=== PATIENT | female | born 1965 | race African-American/Black ===

== ENCOUNTER 2017-01-10 17:35 | Inpatient (IN) | payer OTHER ==
[2017-01-10 18:57] VITALS: BMI 27.7
--- NOTE | 2017-01-10 20:53 | HP ---
COWS - Scale Resting Pulse: 2= AR 101-120 Sweatin= Chills/Flushing Restless Observation: 1= Difficult to Sit Still Pupil Size: 0= Normal to Room Light Bone or Joint Aches: 2= Severe Diffuse Aches Runny Nose/ Eye Tearin= Runny Nose/Eyes GI Upset > 30mins: 3= Vomiting/Diarrhea Tremor Observation: 2= Slight Tremor Visible Yawning Observation: 0= None Anxiety or Irritability: 2=Irritable/Anxious Goose Flesh Skin: 0=Smooth Skin COWS Score: 15 Admission ROS [facility] - [facility] Chief Complaint: withdrawal sx Allergies/Adverse Reactions: Allergies Allergy/AdvReac Type Severity Reaction Status Date / Time Penicillins Allergy Severe Swelling Verified 01/10/17 20:45 History of Present Illness: 51 years old female with long history o f opioid nicotine dependence, has asthma and hypertension denies mental illness,is admitted to detox patient has opioid withdrawal sx call ambulance from home treated at [facility] discharged to [facility] for opioid detox Exam Limitations: No Limitations - Ebola screening Have you traveled outside of the country in the last 21 days: No Have you had contact with anyone from an Ebola affected area: No Have you been sick,other than usual withdrawal symptoms: No Do you have a fever: No - Review of Systems Constitutional: Chills, Changes in sleep, Weight Stable EENT: reports: Other (eye glasses) Respiratory: reports: SOB with Exertion Cardiac: reports: No Symptoms Reported GI: reports: Diarrhea, Nausea, Poor Fluid Intake, Abdominal cramping : reports: No Symptoms Reported Musculoskeletal: reports: Back Pain, Joint Pain, Muscle Pain, Neck Pain Integumentary: reports: No Symptoms Reported Neuro: reports: Tremors Endocrine: reports: No Symptoms Reported Hematology: reports: No Symptoms Reported Psychiatric: reports: Judgement Intact, Mood/Affect Appropiate, Orientated x3 Other Systems: Reviewed and Negative Patient History - Patient Medical History Hx Anemia: No Hx Asthma: Yes Hx Chronic Obstructive Pulmonary Disease (COPD): No Hx Cancer: No Hx Cardiac Disorders: No Hx Congestive Heart Failure: No Hx Hypertension: Yes Hx Hypercholesterolemia: No Hx Pacemaker: No HX Cerebrovascular Accident: No Hx Seizures: No Hx Dementia: No Hx Diabetes: No Hx Gastrointestinal Disorders: Yes Hx Liver Disease: No Hx Genitourinary Disorders: No Hx Sexually Transmitted Disorders: No Hx Renal Disease (ESRD): No Hx Thyroid Disease: No Hx Human Immunodeficiency Virus (HIV): No Hx Hepatitis C: No Hx Depression: No Hx Suicide Attempt: No Hx Bipolar Disorder: No Hx Schizophrenia: No - Patient Surgical History Past Surgical History: Yes Hx Section: Yes (x3) Anesthesia Reaction: No - PPD History Previous Implant?: Yes Documented Results: Negative w/o proof Implanted On Prior R Admission?: No PPD to be Administered?: Yes - Reproductive History Patient is a Female of Child Bearing Age (11 -55 yrs old): Yes Last Menstrual Period: 02/08/10 Patient : No - Smoking Cessation Smoking history: Current every day smoker Have you smoked in the past 12 months: Yes Aproximately how many cigarettes per day: 10 Cigars Per Day: 0 Hx Chewing Tobacco Use: No Initiated information on smoking cessation: Yes 'Breaking Loose' booklet given: 01/10/17 - Substance & Tx. History Hx Alcohol Use: No Hx Substance Use: Yes Substance Use Type: Cocaine, Heroin, Opiates Hx Substance Use Treatment: Yes - Substances Abused Heroin Route: Inhalation Frequency: Daily Amount used: 10 bags Age of first use: 18 Date of Last Use: 01/09/17 Family Disease History - Family Disease History Family Disease History: Heart Disease: Grandparent, Other: Father (), Mother ( hiv) Admission Physical Exam S - Vital Signs Vital Signs: Vital Signs - 24 hr 01/10/17 01/10/17 18:53 20:21 Temperature 97.7 F 97.7 F Pulse Rate 107 H 107 H Respiratory 20 20 Rate Blood Pressure 102/80 102/80 - Physical General Appearance: Yes: Nourished, Appropriately Dressed, Mild Distress ( withdrawal sx treated at [facility]), Tremorous, Irritable, Sweating, Anxious HEENTM: Yes: Hearing grossly Normal, Normal ENT Inspection, Normocephalic, Normal Voice Respiratory: Yes: Chest Non-Tender, Lungs Clear, Normal Breath Sounds, No Respiratory Distress, No Accessory Muscle Use Neck: Yes: Supple, Trachea in good position Breast: Yes: Breasts Symetrical Cardiology: Yes: Regular Rhythm, S1, S2, Tachycardia Abdominal: Yes: Non Tender, Soft Genitourinary: Yes: Within Normal Limits Back: Yes: Normal Inspection Musculoskeletal: Yes: full range of Motion, Gait Steady, Back pain, Muscle Pain Extremities: Yes: Normal Range of Motion, Non-Tender, Tremors Neurological: Yes: Fully Oriented, Alert, Motor Strength 5/5, Normal Mood/Affect , Normal Response Integumentary: Yes: Warm Lymphatic: Yes: Within Normal Limits - Diagnostic (1) Opioid dependence with withdrawal Current Visit: Yes Status: Acute (2) Nicotine dependence Current Visit: Yes Status: Acute Qualifiers: Nicotine product type: cigarettes Substance use status: in withdrawal Qualified Code(s): F17.213 - Nicotine dependence, cigarettes, with withdrawal (3) Asthma Current Visit: Yes Status: Chronic Qualifiers: Asthma severity: mild persistent Asthma complication type: with status asthmaticus Qualified Code(s): J45.32 - Mild persistent asthma with status asthmaticus (4) Hypertension Current Visit: Yes Status: Chronic Qualifiers: Hypertension type: essential hypertension Qualified Code(s): I10 - Essential (primary) hypertension Comment: low bp upon admission hold norvasc 5 mg (5) GERD (gastroesophageal reflux disease) Current Visit: Yes Status: Chronic Qualifiers: Esophagitis presence: without esophagitis Qualified Code(s): K21.9 - Gastro-esophageal reflux disease without esophagitis Cleared for Admission [facility] - Detox or Rehab [facility] Level of Care: Medically Managed Detox Regimen/Protocol: Methadone [facility] Breath Alcohol Content Breath Alcohol Content: 0 Urine Pregancy Test - Result Urine Test Results: Negative- NO Line Present Urine Drug Screen - Results Drug Screen Negative: No Urine Drug Screen Results: DELIA-Cocaine, MET-Methamphetamine, BZO-Benzodiazepines , TCA-Tricyclic Antidepress
[2017-01-10] MEDS ORDERED: METHADONE HCL 10 MG TABLET (FOR DETOX USE ONLY) PO ONE ×2 (20:59→23:00)
[2017-01-10] MEDS ORDERED: NICOTINE POLACRILEX 2 MG GUM BC PRN (20:59)
[2017-01-10] MEDS ORDERED: MAGNESIUM CITRATE 300 ML BOTTLE PO PRN (20:59)
[2017-01-10] MEDS ORDERED: LOPERAMIDE HCL 2 MG CAPSULE PO PRN (20:59)
[2017-01-10] MEDS ORDERED: guaiFENesin/D-METHORPHAN HB 10 ML UNIT-DOSE CUPS PO PRN (20:59)
[2017-01-10] MEDS ORDERED: MAG HYDROX/AL HYDROX/SIMETH 30 ML UNIT-DOSE CUP PO PRN (20:59)
[2017-01-10] MEDS ORDERED: MENTHOL/PHENOL 1 EACH UD MM PRN (20:59)
[2017-01-10] MEDS ORDERED: MAGNESIUM HYDROX 2400MG/30ML ORAL SUSPENSION 30 ML CUP PO PRN (20:59)
[2017-01-10] MEDS ORDERED: P-EPHED 60MG/TRIPROLIDI 2.5MG TABLET PO PRN (20:59)
[2017-01-10] MEDS ORDERED: ALBUTEROL SO4 2.5/IPRATROPIUM 0.5 INH SOL 3 ML VIAL.NEB. NEB PRN (21:04)
[2017-01-10] MEDS: RANITIDINE HCL 150 MG TABLET (FP) PO SCH (22:07)
[2017-01-10] MEDS: THIAMINE HCL 100 MG TABLET (FP) PO SCH (22:08)
[2017-01-11] MEDS: diazePAM 5 MG TABLET PO PRN ×5 (00:49→22:13)
[2017-01-11] MEDS: ALBUTEROL SO4 6.7 GM HFA INHALER IH PRN ×2 (00:51→17:41)
[2017-01-11] MEDS ORDERED: METHADONE HCL 10 MG TABLET (FOR DETOX USE ONLY) PO ONE (10:00)
[2017-01-11] MEDS: RANITIDINE HCL 150 MG TABLET (FP) PO SCH ×2 (10:29→22:09)
[2017-01-11] MEDS: PRENATAL VITAMINS W/ FOLIC ACID TABLET (FP) PO SCH (10:29)
[2017-01-11] MEDS: NICOTINE 14 MG/24 HOURS TOPICAL PATCH TD SCH (10:30)
--- NOTE | 2017-01-11 12:02 | PN ---
[facility] Progress Note Note: according to urine toxicology last night pt was not positive for opiates. pt was made aware of result. today pt was asked to give urine for another tox screen; today result show opiates. pt states she has been doing heroin all this and last week. urine toxicology indicate positive for opiates. pt will be placed on methadone regimen detox as previously ordered.
--- NOTE | 2017-01-11 13:23 | EKG ---
Test Reason : Blood Pressure : / mmHG Vent. Rate : 086 BPM Atrial Rate : 086 BPM P-R Int : 158 ms QRS Dur : 088 ms QT Int : 390 ms P-R-T Axes : 078 072 069 degrees QTc Int : 466 ms NORMAL SINUS RHYTHM POSSIBLE LEFT ATRIAL ENLARGEMENT BORDERLINE ECG NO PREVIOUS ECGS AVAILABLE Confirmed by MICHAEL KELLEY, MARCIO ([id number]) on 01/11/2017 1:22:59 PM Referred By: John Lutz Confirmed By:MARCIO RODRIGUEZ MD
[2017-01-11] MEDS: THIAMINE HCL 100 MG TABLET (FP) PO SCH (22:09)
[2017-01-11] MEDS: diphenhydrAMINE HCL 50 MG CAPSULE PO PRN (22:13)
[2017-01-12] MEDS: diazePAM 5 MG TABLET PO PRN ×5 (04:00→23:02)
[2017-01-12] MEDS: ACETAMINOPHEN 325 MG TABLET (FP) PO PRN ×2 (04:01→15:36)
--- NOTE | 2017-01-12 09:00 | CONSULT ---
[facility] Psychiatric Consult - Data Date of interview: 01/12/17 Admission source: [facility] Identifying data: This is 51 myears old female with no psychiatric hospitalization history intoxicated with: Heroin and Nicotine Substance Abuse History: - Smoking Cessation. Smoking history: Current every day smoker. Have you smoked in the past 12 months: Yes. Aproximately how many cigarettes per day: 10. Cigars Per Day: 0. Hx Chewing Tobacco Use: No. Initiated information on smoking cessation: Yes. 'Breaking Loose' booklet given : 01/10/17. - Substance & Tx. History. Hx Alcohol Use: No. Hx Substance Use: Yes. Substance Use Type: Cocaine, Heroin, Opiates. Hx Substance Use Treatment : Yes. - Substances Abused. Heroin. Route: Inhalation. Frequency: Daily. Amount used: 10 bags. Age of first use: 18. Date of Last Use: 01/09/17 Medical History: Asthma, GERD, HTN Psychiatric History: Patient reprots history of depression and anxiety, preoccupied with insomnia, reports taking prior to admission: Trazodone 50mg po qhs Physical/Sexual Abuse/Trauma History: Denies Additional Comment: Trazodone 50mg po qhs Mental Status Exam - Mental Status Exam Alert and Oriented to: Person Cognitive Function: Fair Patient Appearance: Unkempt Mood: Apprehensive Affect: Mood Congruent Patient Behavior: Cooperative Speech Pattern: Appropriate Voice Loudness: Mildly Soft/Quiet Thought Process: Goal Oriented Thought Disorder: Being Controlled Hallucinations: Denies Suicidal Ideation: Denies Homicidal Ideation: Denies Insight/Judgement: Fair Sleep: Difficulty falling asleep Appetite: Weight loss Muscle strength/Tone: Normal Gait/Station: Shuffling Additional Comments: Trazodone 50mg po qhs Psychiatric Findings - Problem List ([place] 1, 2,3) (1) Nicotine dependence Current Visit: Yes Status: Acute Qualifiers: Nicotine product type: cigarettes Substance use status: in withdrawal Qualified Code(s): F17.213 - Nicotine dependence, cigarettes, with withdrawal (2) Opioid dependence with withdrawal Current Visit: Yes Status: Acute (3) Drug-induced mood disorder Current Visit: Yes Status: Acute (4) Opioid-induced sleep disorder, insomnia type, with onset during discontinuation/withdrawal Current Visit: Yes Status: Acute - Initial Treatment Plan Initial Treatment Plan: Trazodone 50mg po qhs. Doxepin 50mg po qhs
[2017-01-12] MEDS ORDERED: METHADONE HCL 5 MG TABLET (FOR DETOX USE ONLY) PO ONE ×2 (10:00)
[2017-01-12] MEDS ORDERED: METHADONE HCL 10 MG TABLET (FOR DETOX USE ONLY) PO ONE (10:00)
[2017-01-12 10:13] LABS: MCH 22.8 pg (25.7-33.7); MCHC 32.4 g/dl (32.0-36.0); MEAN CELL VOLUME 70.3 fl (80-96); MEAN PLT VOLUME 8.4 fl (7.5-11.1); PLATELET COUNT 392 K/MM3 (134-434); RDW 16.6 % (11.6-15.6); WHITE BLOOD COUNT 5.9 K/mm3 (4.0-10.0)
[2017-01-12] MEDS: LISINOPRIL 10 MG TABLET (FP) PO SCH (10:26)
[2017-01-12] MEDS: PRENATAL VITAMINS W/ FOLIC ACID TABLET (FP) PO SCH (10:26)
[2017-01-12] MEDS: RANITIDINE HCL 150 MG TABLET (FP) PO SCH ×2 (10:26→22:04)
[2017-01-12] MEDS: NICOTINE 14 MG/24 HOURS TOPICAL PATCH TD SCH (10:26)
[2017-01-12 10:57] LABS: ALBUMIN 3.3 g/dl (3.4-5.0); BILIRUBIN,TOTAL 0.3 mg/dL (0.2-1.0); CALCIUM 8.9 mg/dL (8.5-10.1); COCKROFT - GAULT 68.425; TOT PROT 5.9 g/dl (6.4-8.2)
--- NOTE | 2017-01-12 11:33 | PN ---
[facility] COWS - Scale Resting Pulse: 0= AR 80 or Below Sweatin= Chills/Flushing Restless Observation: 1= Difficult to Sit Still Pupil Size: 1= Pupils >than Normal Bone or Joint Aches: 2= Severe Diffuse Aches Runny Nose/ Eye Tearin= None GI Upset > 30mins: 2= Nausea/Diarrhea Tremor Observation of Outstretched Hands: 1= Tremor [place], Not Seen Yawning Observation: 0= None Anxiety or Irritability: 2=Irritable/Anxious Goose Flesh Skin: 0=Smooth Skin COWS Score: 10 [facility] Progress Note (SOAP) Subjective: interrrupted sleep, sweats , diarrhea , stomach upset from vomiting yesterday Objective: 01/12/17 11:30 Vital Signs Temperature 98.2 F 01/12/17 09:39 Pulse Rate 81 01/12/17 09:39 Respiratory Rate 16 01/12/17 09:39 Blood Pressure 129/80 01/12/17 09:39 O2 Sat by Pulse Oximetry (%) Laboratory Tests 01/12/17 01/12/17 07:00 07:00 WBC 5.9 RBC 5.23 H Hgb 11.9 Hct 36.8 MCV 70.3 L MCHC 32.4 RDW 16.6 H Plt Count 392 MPV 8.4 Sodium 143 Potassium 4.8 Chloride 106 Carbon Dioxide 28 Anion Gap 9 BUN 13 Creatinine 1.0 Creat Clearance w eGFR 58.69 Random Glucose 81 Calcium 8.9 Total Bilirubin 0.3 AST 15 ALT 18 Alkaline Phosphatase 73 Total Protein 5.9 L Albumin 3.3 L pt aox3 in nad ambulating 01/12/17 11:32 abd mild epigatric tendernesss no masses or rebound Assessment: 01/12/17 11:31 withdrawal sx's dyspepsia 01/12/17 11:32 Plan: cont. detox increase fluids imodium prn zantac bid
[2017-01-12] MEDS: TRIMETHOBENZAMIDE HCL 300 MG CAPSULE PO PRN (13:59)
[2017-01-12] MEDS: THIAMINE HCL 100 MG TABLET (FP) PO SCH (22:04)
[2017-01-12] MEDS: traZODone HCL 50 MG TABLET (FP) PO SCH (22:04)
[2017-01-12] MEDS: DOXEPIN HCL 50 MG CAPSULE PO SCH (22:04)
[2017-01-12] MEDS: diphenhydrAMINE HCL 50 MG CAPSULE PO PRN (22:05)
[2017-01-12] MEDS: ALBUTEROL SO4 6.7 GM HFA INHALER IH PRN (23:02)
[2017-01-13] MEDS ORDERED: METHADONE HCL 5 MG TABLET (FOR DETOX USE ONLY) PO ONE ×2 (10:00)
[2017-01-13] MEDS: PRENATAL VITAMINS W/ FOLIC ACID TABLET (FP) PO SCH (10:35)
[2017-01-13] MEDS: RANITIDINE HCL 150 MG TABLET (FP) PO SCH ×2 (10:35→22:05)
[2017-01-13] MEDS: LISINOPRIL 10 MG TABLET (FP) PO SCH (10:35)
[2017-01-13] MEDS: diazePAM 5 MG TABLET PO PRN ×3 (10:35→20:25)
[2017-01-13] MEDS: NICOTINE 14 MG/24 HOURS TOPICAL PATCH TD SCH (10:37)
[2017-01-13] MEDS: BUDESONIDE/FORMETEROL FUMARATE 80/4.5 mcg INHALER IH SCH ×2 (11:00→22:06)
--- NOTE | 2017-01-13 11:15 | PN ---
[facility] COWS - Scale Resting Pulse: 1= [place] 81-100 Sweatin= Chills/Flushing Restless Observation: 1= Difficult to Sit Still Pupil Size: 0= Normal to Room Light Bone or Joint Aches: 1= Mild Discomfort Runny Nose/ Eye Tearin= Nasal Congestion GI Upset > 30mins: 0= None Tremor Observation of Outstretched Hands: 2= Slight Tremor Visible Yawning Observation: 0= None Anxiety or Irritability: 2=Irritable/Anxious Goose Flesh Skin: 0=Smooth Skin COWS Score: 9 [facility] Progress Note (SOAP) Subjective: sweats chills interrupted sleep body aches Objective: 01/13/17 11:13 Vital Signs Temperature 95.9 F L 01/13/17 10:49 Pulse Rate 90 01/13/17 10:49 Respiratory Rate 16 01/13/17 10:49 Blood Pressure 118/72 01/13/17 10:49 O2 Sat by Pulse Oximetry (%) Laboratory Tests 01/12/17 01/12/17 01/12/17 07:00 07:00 07:00 WBC 5.9 RBC 5.23 H Hgb 11.9 Hct 36.8 MCV 70.3 L MCHC 32.4 RDW 16.6 H Plt Count 392 MPV 8.4 Sodium 143 Potassium 4.8 Chloride 106 Carbon Dioxide 28 Anion Gap 9 BUN 13 Creatinine 1.0 Creat Clearance w eGFR 58.69 Random Glucose 81 Calcium 8.9 Total Bilirubin 0.3 AST 15 ALT 18 Alkaline Phosphatase 73 Total Protein 5.9 L Albumin 3.3 L RPR Titer Nonreactive awake/alert ambulating no acute distress Assessment: 01/13/17 11:14 withdrawal sx Plan: continue detox increase fluids
[2017-01-13] MEDS: TRIMETHOBENZAMIDE HCL 300 MG CAPSULE PO PRN (20:04)
[2017-01-13] MEDS: diphenhydrAMINE HCL 50 MG CAPSULE PO PRN (22:05)
[2017-01-13] MEDS: THIAMINE HCL 100 MG TABLET (FP) PO SCH (22:05)
[2017-01-13] MEDS: traZODone HCL 50 MG TABLET (FP) PO SCH (22:05)
[2017-01-13] MEDS: DOXEPIN HCL 50 MG CAPSULE PO SCH (22:05)
[2017-01-13] MEDS: ALBUTEROL SO4 6.7 GM HFA INHALER IH PRN (22:07)
[2017-01-14] MEDS: hydrOXYzine PAMOATE 50 MG CAPSULE (FP) PO PRN ×5 (04:44→22:19)
[2017-01-14] MEDS ORDERED: METHADONE HCL 10 MG TABLET (FOR DETOX USE ONLY) PO ONE ×2 (10:00)
[2017-01-14] MEDS: BUDESONIDE/FORMETEROL FUMARATE 80/4.5 mcg INHALER IH SCH ×2 (10:25→22:18)
[2017-01-14] MEDS: LISINOPRIL 10 MG TABLET (FP) PO SCH (10:26)
[2017-01-14] MEDS: PRENATAL VITAMINS W/ FOLIC ACID TABLET (FP) PO SCH (10:26)
[2017-01-14] MEDS: ALBUTEROL SO4 6.7 GM HFA INHALER IH PRN (10:28)
[2017-01-14] MEDS: RANITIDINE HCL 150 MG TABLET (FP) PO SCH ×2 (10:28→22:17)
[2017-01-14] MEDS: NICOTINE 14 MG/24 HOURS TOPICAL PATCH TD SCH (10:28)
--- NOTE | 2017-01-14 14:10 | PN ---
[facility] Progress Note (SOAP) Subjective: sweats, shakes, interrupted sleep Objective: 01/14/17 14:09 Vital Signs - 8 hr 01/14/17 10:52 Temperature 97.0 F L Pulse Rate 91 H Respiratory 16 Rate Blood Pressure 130/61 Laboratory Last Values WBC 5.9 K/mm3 (4.0-10.0) 01/12/17 07:00 RBC 5.23 M/mm3 (3.60-5.2) H 01/12/17 07:00 Hgb 11.9 GM/dL (10.7-15.3) 01/12/17 07:00 Hct 36.8 % (32.4-45.2) 01/12/17 07:00 MCV 70.3 fl (80-96) L 01/12/17 07:00 MCHC 32.4 g/dl (32.0-36.0) 01/12/17 07:00 RDW 16.6 % (11.6-15.6) H 01/12/17 07:00 Plt Count 392 K/MM3 (134-434) 01/12/17 07:00 MPV 8.4 fl (7.5-11.1) 01/12/17 07:00 Sodium 143 mmol/L (136-145) 01/12/17 07:00 Potassium 4.8 mmol/L (3.5-5.1) 01/12/17 07:00 Chloride 106 mmol/L (98-107) 01/12/17 07:00 Carbon Dioxide 28 mmol/L (21-32) 01/12/17 07:00 Anion Gap 9 (8-16) 01/12/17 07:00 BUN 13 mg/dL (7-18) 01/12/17 07:00 Creatinine 1.0 mg/dL (0.55-1.02) 01/12/17 07:00 Creat Clearance w eGFR 58.69 (>60) 01/12/17 07:00 Random Glucose 81 mg/dL (74-106) 01/12/17 07:00 Calcium 8.9 mg/dL (8.5-10.1) 01/12/17 07:00 Total Bilirubin 0.3 mg/dL (0.2-1.0) 01/12/17 07:00 AST 15 U/L (15-37) 01/12/17 07:00 ALT 18 U/L (12-78) 01/12/17 07:00 Alkaline Phosphatase 73 U/L (45-117) 01/12/17 07:00 Total Protein 5.9 g/dl (6.4-8.2) L 01/12/17 07:00 Albumin 3.3 g/dl (3.4-5.0) L 01/12/17 07:00 RPR Titer Nonreactive (NONREACTIVE) 01/12/17 07:00 Labs noted Assessment: 01/14/17 14:09 withdrawal sx Plan: continue detox
[2017-01-14] MEDS: DOXEPIN HCL 50 MG CAPSULE PO SCH (22:17)
[2017-01-14] MEDS: THIAMINE HCL 100 MG TABLET (FP) PO SCH (22:17)
[2017-01-14] MEDS: traZODone HCL 50 MG TABLET (FP) PO SCH (22:17)
[2017-01-14] MEDS: diphenhydrAMINE HCL 50 MG CAPSULE PO PRN (22:17)
[2017-01-15] MEDS: hydrOXYzine PAMOATE 50 MG CAPSULE (FP) PO PRN ×2 (04:16→09:05)
[2017-01-15] MEDS ORDERED: METHADONE HCL 5 MG TABLET (FOR DETOX USE ONLY) PO ONE ×2 (06:00)
[2017-01-15] MEDS: LISINOPRIL 10 MG TABLET (FP) PO SCH (09:05)
[2017-01-15 09:50] VITALS: BP 141/94; PULSE 93; TEMP 96.3
--- NOTE | 2017-01-15 10:05 | DS ---
[facility] Detox Discharge Summary Admission Date: 01/10/17 Discharge Date: 01/15/17 - History Present History: Opioid Dependence Pertinent Past History: hx of HTN, Asthma, GERD - Physical Exam Results Vital Signs: Vital Signs Temperature 96.3 F L 01/15/17 09:49 Pulse Rate 93 H 01/15/17 09:49 Respiratory Rate 20 01/15/17 09:49 Blood Pressure 141/94 01/15/17 09:49 O2 Sat by Pulse Oximetry (%) Pertinent Admission Physical Exam Findings: withdrow of sx Laboratory Last Values WBC 5.9 K/mm3 (4.0-10.0) 01/12/17 07:00 RBC 5.23 M/mm3 (3.60-5.2) H 01/12/17 07:00 Hgb 11.9 GM/dL (10.7-15.3) 01/12/17 07:00 Hct 36.8 % (32.4-45.2) 01/12/17 07:00 MCV 70.3 fl (80-96) L 01/12/17 07:00 MCHC 32.4 g/dl (32.0-36.0) 01/12/17 07:00 RDW 16.6 % (11.6-15.6) H 01/12/17 07:00 Plt Count 392 K/MM3 (134-434) 01/12/17 07:00 MPV 8.4 fl (7.5-11.1) 01/12/17 07:00 Sodium 143 mmol/L (136-145) 01/12/17 07:00 Potassium 4.8 mmol/L (3.5-5.1) 01/12/17 07:00 Chloride 106 mmol/L (98-107) 01/12/17 07:00 Carbon Dioxide 28 mmol/L (21-32) 01/12/17 07:00 Anion Gap 9 (8-16) 01/12/17 07:00 BUN 13 mg/dL (7-18) 01/12/17 07:00 Creatinine 1.0 mg/dL (0.55-1.02) 01/12/17 07:00 Creat Clearance w eGFR 58.69 (>60) 01/12/17 07:00 Random Glucose 81 mg/dL (74-106) 01/12/17 07:00 Calcium 8.9 mg/dL (8.5-10.1) 01/12/17 07:00 Total Bilirubin 0.3 mg/dL (0.2-1.0) 01/12/17 07:00 AST 15 U/L (15-37) 01/12/17 07:00 ALT 18 U/L (12-78) 01/12/17 07:00 Alkaline Phosphatase 73 U/L (45-117) 01/12/17 07:00 Total Protein 5.9 g/dl (6.4-8.2) L 01/12/17 07:00 Albumin 3.3 g/dl (3.4-5.0) L 01/12/17 07:00 RPR Titer Nonreactive (NONREACTIVE) 01/12/17 07:00 labs noted - Treatment Hospital Course: Detox Protocol Followed, Detoxed Safely, Responded well, Discharged Condition Good, Rehab Referral Accepted Patient has Accepted a Rehab Referral to: [facility] - Medication Discharge Medications: Ambulatory Orders Albuterol Sulfate Inhaler - [Ventolin Hfa Inhaler -] 1 - 2 inh PO TID 01/10/17 Lisinopril [Prinivil -] 10 mg PO DAILY 01/10/17 Trazodone HCl [Desyrel -] 50 mg PO HS 01/10/17 Doxepin HCl [[place] -] 50 mg PO HS #30 cap 01/12/17 Trazodone HCl [Desyrel -] 50 mg PO HS #30 tablet 01/12/17 - Diagnosis (1) Drug-induced mood disorder Current Visit: Yes Status: Acute (2) Nicotine dependence Current Visit: Yes Status: Acute Qualifiers: Nicotine product type: cigarettes Substance use status: in withdrawal Qualified Code(s): F17.213 - Nicotine dependence, cigarettes, with withdrawal (3) Opioid dependence with withdrawal Current Visit: Yes Status: Acute (4) Opioid-induced sleep disorder, insomnia type, with onset during discontinuation/withdrawal Current Visit: Yes Status: Acute (5) Asthma Current Visit: Yes Status: Chronic Qualifiers: Asthma severity: mild persistent Asthma complication type: with status asthmaticus Qualified Code(s): J45.32 - Mild persistent asthma with status asthmaticus (6) GERD (gastroesophageal reflux disease) Current Visit: Yes Status: Chronic Qualifiers: Esophagitis presence: without esophagitis Qualified Code(s): K21.9 - Gastro-esophageal reflux disease without esophagitis (7) Hypertension Current Visit: Yes Status: Chronic Qualifiers: Hypertension type: essential hypertension Qualified Code(s): I10 - Essential (primary) hypertension - AMA Did Patient Leave Against Medical Advice: No
== END 2017-01-15 09:11 | disposition home or self-care (01) | DRG 773 ==
LOC: YASAS 17:35 → Y6N 20:45
PROVIDERS: ADMIT Internal Medicine Addiction Medicine; ATTEND Internal Medicine Addiction Medicine
PROC: HZ2ZZZZ Detoxification Services for Substance Abuse Treatment (ICD-10-PCS; principal; 2017-01-10)
DX: F11.23 Opioid dependence with withdrawal (principal); F11.282 Opioid dependence with opioid-induced sleep disorder; F17.210 Nicotine dependence, cigarettes, uncomplicated; F19.24 Other psychoactive substance dependence with psychoactive substance-induced mood disorder; J45.32 Mild persistent asthma with status asthmaticus; K21.9 Gastro-esophageal reflux disease without esophagitis; I10 Essential (primary) hypertension; R00.0 Tachycardia, unspecified; R10.13 Epigastric pain
CPT/HCPCS: 36415; 80053; 81003; 85027; 86593; 93005; 93010